=== PATIENT | female | born 1980 | race Caucasian/White ===

== ENCOUNTER 2024-08-07 17:51 | Emergency (ER) | payer BC ==
[2024-08-07] MEDS ORDERED: predniSONE 20 MG Tab PO ONE (18:04)
[2024-08-07] MEDS ORDERED: Albuterol/Ipratropium 3.0-0.5 MG/3 ML Neb Soln NEB ONE (18:09)
[2024-08-07] MEDS: methylPREDNISolone Sodium Succinate 125 MG/2 ML SDV IM ONE (18:13)
[2024-08-07] MEDS: Albuterol/Ipratropium 3.0-0.5 MG/3 ML Neb Soln NEB ONE ×2 (18:17→18:18)
== END 2024-08-07 19:40 | disposition home or self-care (01) ==
LOC: JD.ED 17:51
DX: J45.901 Unspecified asthma with (acute) exacerbation (principal)
CPT/HCPCS: 94640; 96372; 99284; J2919; J7620; A9270-GY